=== PATIENT | male | born 1980 | race Caucasian/White ===

== ENCOUNTER 2017-06-30 09:45 | Emergency (ER) | payer MEDICAID, OTHER ==
[~2017-06-30] VITALS: Ht 177.8 cm; Wt 90.0 kg
[2017-06-30 09:47] VITALS: BP 142/87
== END 2017-06-30 12:48 | disposition left against medical advice (07) ==
LOC: ER 09:45
DX: Z53.21 Procedure and treatment not carried out due to patient leaving prior to being seen by health care provider (principal)